=== PATIENT | male | born 1975 | race Caucasian/White ===

== ENCOUNTER 2021-05-22 09:40 | Emergency (ER) | payer SELFPAY ==
[~2021-05-22] VITALS: Ht 180.3 cm; Wt 92.1 kg
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
--- NOTE | 2021-05-22 09:50 | NUR ---
[facility] UNIT 15A85,[place] AT BEDSIDE FOR REPORT
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
[2021-05-22 10:26] VITALS: BP 134/95
== END 2021-05-22 10:27 | disposition home or self-care (01) ==
LOC: ER 09:42
DX: S01.01XA Laceration without foreign body of scalp, initial encounter (principal); S01.81XA Laceration without foreign body of other part of head, initial encounter; S01.21XA Laceration without foreign body of nose, initial encounter; F98.8 Other specified behavioral and emotional disorders with onset usually occurring in childhood and adolescence; F31.9 Bipolar disorder, unspecified; F17.200 Nicotine dependence, unspecified, uncomplicated; Z98.890 Other specified postprocedural states; Y04.0XXA Assault by unarmed brawl or fight, initial encounter; Y93.89 Activity, other specified; Y92.89 Other specified places as the place of occurrence of the external cause; Y99.8 Other external cause status
CPT/HCPCS: 70450-TC

== ENCOUNTER 2021-10-16 06:18 | Emergency (ER) | payer OTHER ==
[~2021-10-16] VITALS: Ht 182.9 cm; Wt 90.7 kg
[2021-10-16 06:27] VITALS: BP 140/60
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
--- NOTE | 2021-10-16 06:43 | NUR ---
PT SEEN BY DR. KAY PARKS
[2021-10-16] MEDS ORDERED: KETOROLAC TROMETHAMINE INJ 60 MG/2 ML VIAL IM ONE ×2 (06:54→07:00)
--- NOTE | 2021-10-16 07:14 | NUR ---
Patient eloped from facility. ER MD notified.
== END 2021-10-16 07:17 | disposition left against medical advice (07) ==
LOC: ER 06:24
DX: S16.1XXA Strain of muscle, fascia and tendon at neck level, initial encounter (principal); F31.9 Bipolar disorder, unspecified; F17.200 Nicotine dependence, unspecified, uncomplicated; Z87.898 Personal history of other specified conditions; Z86.59 Personal history of other mental and behavioral disorders; W14.XXXA Fall from tree, initial encounter; Y93.89 Activity, other specified; Y92.89 Other specified places as the place of occurrence of the external cause; Y99.8 Other external cause status
CPT/HCPCS: 96372; 99283; J1885